=== PATIENT | male | born 1995 | race African-American/Black ===

== ENCOUNTER 2018-01-09 14:45 | Emergency (ER) | payer SELFPAY ==
[~2018-01-09] VITALS: Ht 193 cm; Wt 120.0 kg
[2018-01-09 14:46] VITALS: BP 138/84
[2018-01-09] MEDS ORDERED: CEFTRIAXONE 250 MG ONE (16:00)
[2018-01-09] MEDS ORDERED: CEFTRIAXONE 250 MG IM ONE (16:00)
[2018-01-09] MEDS ORDERED: AZITHROMYCIN 500 MG TABLET ONE (16:00)
[2018-01-09] MEDS ORDERED: AZITHROMYCIN 500 MG TABLET PO ONE (16:00)
== END 2018-01-09 16:25 | disposition home or self-care (01) ==
LOC: ED 16:23
DX: Z20.2 Contact with and (suspected) exposure to infections with a predominantly sexual mode of transmission (principal)
CPT/HCPCS: 87491; 87591; 96372; 99284; J0696

== ENCOUNTER 2018-04-12 16:34 | Emergency (ER) | payer SELFPAY ==
[~2018-04-12] VITALS: Ht 193 cm; Wt 112.6 kg
[2018-04-12] MEDS ORDERED: AZITHROMYCIN 500 MG TABLET PO ONE (17:00)
[2018-04-12] MEDS ORDERED: CEFTRIAXONE 250 MG IM ONE (17:00)
[2018-04-12] MEDS ORDERED: AZITHROMYCIN 500 MG TABLET ONE (17:15)
[2018-04-12] MEDS ORDERED: CEFTRIAXONE 250 MG ONE (17:16)
[2018-04-12 17:57] VITALS: BP 135/80
== END 2018-04-12 18:00 | disposition home or self-care (01) ==
LOC: ED 17:39
DX: Z20.2 Contact with and (suspected) exposure to infections with a predominantly sexual mode of transmission (principal)
CPT/HCPCS: 96372; 99283; J0696

== ENCOUNTER 2018-08-06 22:41 | Emergency (ER) | payer SELFPAY ==
[~2018-08-06] VITALS: Ht 193 cm; Wt 111.0 kg
[2018-08-06 22:46] VITALS: BP 133/79
== END 2018-08-07 00:04 | disposition home or self-care (01) ==
LOC: ED 23:26
DX: J20.8 Acute bronchitis due to other specified organisms (principal); B97.89 Other viral agents as the cause of diseases classified elsewhere
CPT/HCPCS: 71046; 99283

== ENCOUNTER 2018-11-11 11:54 | Emergency (ER) | payer SELFPAY ==
[~2018-11-11] VITALS: Ht 193 cm; Wt 112.0 kg
[2018-11-11 12:26] VITALS: BP 127/85
[2018-11-11] MEDS ORDERED: DEXAMETHASONE 4 MG TABLET PO ONE (12:30)
[2018-11-11] MEDS ORDERED: DEXAMETHASONE 4 MG TABLET ONE (12:57)
[2018-11-11] MEDS ORDERED: ALBUTEROL SULFATE 2.5 MG/3 ML ONE (13:21)
== END 2018-11-11 13:48 | disposition home or self-care (01) ==
LOC: ED 13:19
DX: K11.7 Disturbances of salivary secretion (principal)
CPT/HCPCS: 87081; 87880; 99283

== ENCOUNTER 2018-12-17 01:03 | Emergency (ER) | payer SELFPAY ==
[~2018-12-17] VITALS: Ht 193 cm; Wt 114.0 kg
--- NOTE | 2018-12-17 02:01 | NUR ---
PT WALKED TO ROOM 1. PLACED INTO GOWN AND ATTACHED TO MONITOR. VSS. UPDATED ON PLAN OF CARE
[2018-12-17] MEDS ORDERED: IBUPROFEN 800 MG TABLET PO STA (02:37)
[2018-12-17] MEDS ORDERED: IBUPROFEN 800 MG TABLET ONE (02:41)
[2018-12-17 02:49] VITALS: BP 129/73
== END 2018-12-17 02:53 | disposition home or self-care (01) ==
LOC: ED 02:06
DX: M94.0 Chondrocostal junction syndrome [Tietze] (principal); F17.210 Nicotine dependence, cigarettes, uncomplicated
CPT/HCPCS: 71046; 93005; 99283